=== PATIENT | male | born 1970 | race Two or more races ===

== ENCOUNTER 2016-12-15 00:16 | Emergency (ER) | payer OTHER ==
[2016-12-15 00:23] VITALS: TEMP 97.5
[2016-12-15] MEDS ORDERED: ONDANSETRON 4 MG/2 ML VIAL ONE (00:44)
[2016-12-15] MEDS ORDERED: NS 1,000 ML IV ONE (00:46)
[2016-12-15] MEDS ORDERED: ONDANSETRON 4 MG/2 ML VIAL IVP ONE (00:46)
[2016-12-15 00:58] LABS: % IMMATURE GRANULYOCYTES 0.3 % (0.0-1.1); ABSOLUTE IMMATURE GRANULOCYTES 0.03 10^3/uL (0.00-0.10); ADD DIFF? NO; ADD MORPH? NO; ADD SCAN? NO; ATYPICAL LYMPHOCYTE FLAG 10 (0-99); FRAGMENT RBC FLAG 0 (0-99); HEMATOCRIT 45.5 % (40.0-51.0); HEMOGLOBIN 15.8 g/dL (13.7-17.5); LEFT SHIFT FLG 0 (0-99); LIPEMIA HEMOLYSIS FLAG 90 (0-99); MEAN CELL HEMOGLOBIN 33.1 pg (27.9-34.1); MEAN CELL HEMOGLOBIN CONCENTR. 34.7 g/dL (32.4-36.7); MEAN CELL VOLUME 95.4 fL (81.5-99.8); MEAN PLATELET VOLUME 10.1 fL (8.7-11.7); PLATELET CLUMPS FLAG 10 (0-99); PLATELET COUNT 282 10^3/uL (150-400); RED BLOOD CELL COUNT 4.77 10^6/uL (4.40-6.38)
--- NOTE | 2016-12-15 01:11 | EDPHY ---
H & P Stated Complaint: Abdominal Pain since last night, N/V,worsen tonight after eating Time Seen by Provider: 12/15/16 00:52 HPI/ROS: Chief Complaint: Abdominal pain, nausea, vomiting HPI: 46-year-old male started having epigastric pain about 8 o'clock yesterday evening. Pain is described as constant. Did have some vomiting but there is no blood. Some subjective chills. No diarrhea or constipation. No dark black bowel movements. Has similar episode last night which went away. Has a history of digestive trouble in the past was not had any problems since taking digestive supplements. He has had his gallbladder out years ago. No fevers or chills. No chest pain or shortness of breath. No urinary symptoms. No flank pain. He does use marijuana regularly. Patient now states that he has no pain and his nausea is improved. ROS: 10 point Review of Systems is negative except as noted in the HPI. PMH: Cholecystectomy Medications: None Allergies: Codeine Social History: Occasional smoking, occasional alcohol, regular marijuana Family History: non-contributory Physical Exam: Gen: Awake, Alert, No Distress HEENT: Nose: no rhinorrhea Eyes: PERRLA, EOMI Mouth: Moist mucosa Neck: Supple, no JVD Chest: nontender, lungs clear to auscultation Heart: S1, S2 normal, no murmur Abd: Soft, non-tender, no guarding Back: no CVA tenderness, no midline tenderness Ext: no edema, non-tender Skin: no rash Neuro: CN II-XII intact, Sensation grossly intact, Strength 5/5 in bilateral upper and lower extremities - Personal History Current Tetanus Diphtheria and Acellular Pertussis (TDAP): Unsure - Medical/Surgical History Hx Asthma: No Hx Chronic Respiratory Disease: No Hx Diabetes: No Hx Cardiac Disease: No Hx Renal Disease: No Hx Cirrhosis: No Hx Alcoholism: No Hx HIV/AIDS: No Hx Splenectomy or Spleen Trauma: No Other PMH: gallbladder surgery (20yrs ago) - Social History Smoking Status: Light smoker Constitutional: Initial Vital Signs Temperature (C) 36.4 C 12/15/16 00:19 Heart Rate 49 L 12/15/16 00:19 Respiratory Rate 19 12/15/16 00:19 Blood Pressure 134/92 H 12/15/16 00:19 O2 Sat (%) 97 12/15/16 00:19 O2 Delivery Mode Room Air Allergies/Adverse Reactions: codeine Allergy (Uncoded 12/15/16 00:23) Medical Decision Making ED Course/Re-evaluation: 46-year-old male presenting with epigastric pain nausea and vomiting. Patient' s symptoms resolved after 4 mg of ondansetron a 500 mL of IV saline. On examination has no epigastric tenderness and has a completely soft benign abdomen. I suspect his symptoms are secondary to his marijuana use however there could be a reflux component as well. His pain resolved without any analgesics here. Will discharge with follow-up with primary care physician. I have counseled him to consider discontinuing his marijuana use to see if this improves his symptoms. - Data Points Laboratory Results: Laboratory Results 12/15/16 00:54 12/15/16 00:54 12/15/16 12/15/16 00:54 00:54 WBC 10.39 10^3/uL H 10^3/uL (3.80-9.50) RBC 4.77 10^6/uL 10^6/uL (4.40-6.38) Hgb 15.8 g/dL g/dL (13.7-17.5) Hct 45.5 % % (40.0-51.0) MCV 95.4 fL fL (81.5-99.8) MCH 33.1 pg pg (27.9-34.1) MCHC 34.7 g/dL g/dL (32.4-36.7) RDW 12.0 % % (11.5-15.2) Plt Count 282 10^3/uL 10^3/uL (150-400) MPV 10.1 fL fL (8.7-11.7) Neut % (Auto) 76.7 % H % (39.3-74.2) Lymph % (Auto) 17.9 % % (15.0-45.0) [place] % (Auto) 4.6 % % (4.5-13.0) Eos % (Auto) 0.2 % L % (0.6-7.6) Baso % (Auto) 0.3 % % (0.3-1.7) Nucleat RBC Rel Count 0.0 % % (0.0-0.2) Absolute Neuts (auto) 7.97 10^3/uL H 10^3/uL (1.70-6.50) Absolute Lymphs (auto) 1.86 10^3/uL 10^3/uL (1.00-3.00) Absolute Monos (auto) 0.48 10^3/uL 10^3/uL (0.30-0.80) Absolute Eos (auto) 0.02 10^3/uL L 10^3/uL (0.03-0.40) Absolute Basos (auto) 0.03 10^3/uL 10^3/uL (0.02-0.10) Absolute Nucleated RBC 0.00 10^3/uL 10^3/uL (0-0.01) Immature Gran % 0.3 % % (0.0-1.1) Immature Gran # 0.03 10^3/uL 10^3/uL (0.00-0.10) Turbidity Cancelled Sodium Cancelled Potassium Cancelled Chloride Cancelled Carbon Dioxide Cancelled Anion Gap Cancelled BUN Cancelled Creatinine Cancelled Estimated GFR Cancelled Glucose Cancelled Calcium Cancelled Total Bilirubin Cancelled Icterus Index Cancelled AST Cancelled ALT Cancelled Alkaline Phosphatase Cancelled Total Protein Cancelled Albumin Cancelled Specimen Hemolysis Cancelled Medications Given: Discontinued Medications Sodium Chloride (Ns) 1,000 mls @ 0 mls/hr IV ONCE ONE; Wide Open PRN Reason: Protocol Stop: 12/15/16 00:47 Last Admin: 12/15/16 00:47 Dose: 1,000 mls Ondansetron HCl (Zofran) 4 mg IVP EDNOW ONE Stop: 12/15/16 00:47 Last Admin: 12/15/16 00:47 Dose: 4 mg Departure - Departure Disposition: Home, Routine, Self-Care Clinical Impression: Gastritis Condition: Good Instructions: Gastritis (ED) Additional Instructions: You may take [id number] antacids such as famotidine as needed for your reflux symptoms. Follow up with primary care physician in 3-4 days for further evaluation. Return to the emergency depart for increasing nausea, vomiting, uncontrolled abdominal pain, fevers, chills, or any other concerns. Referrals: UNKNOWN,NAME [Other] - As per Instructions Terrell Vivas MD [Medical Doctor] - As per Instructions
[2016-12-15 02:11] VITALS: BP 125/77; PULSE 43; RESP 16; O2SAT 95
== END 2016-12-15 02:12 | disposition home or self-care (01) ==
DX: K29.70 Gastritis, unspecified, without bleeding (principal); F17.200 Nicotine dependence, unspecified, uncomplicated
CPT/HCPCS: 96374; J2405